=== PATIENT | male | born 1990 | race Caucasian/White ===

== ENCOUNTER 2019-06-06 11:33 | Emergency (ER) | payer OTHER ==
[2019-06-06 11:48] VITALS: BP 107/68; PULSE 75; TEMP 98.4; BMI 27.7
[2019-06-06] MEDS ORDERED: IBUPROFEN 400 MG TABLET (FP) PO ONE ×2 (12:16→12:24)
--- NOTE | 2019-06-06 12:20 | PDOC ---
History of Present Illness - General Chief Complaint: Pain, Acute Stated Complaint: RT GROAIN INJURY Time Seen by Provider: 06/06/19 12:00 History Source: Patient - History of Present Illness Occurred: reports: this morning Lower Extremity Pain Location: right: other (thigh) Method of Injury: Yes: twisted Past History - Past Medical History Allergies/Adverse Reactions: Allergies Allergy/AdvReac Type Severity Reaction Status Date / Time No Known Allergies Allergy Verified 08/05/15 10:26 Home Medications: Ambulatory Orders Cyclobenzaprine HCl [Flexeril -] 5 mg PO TID PRN #21 tablet 03/29/16 Naproxen [Naprosyn -] 500 mg PO BID #14 tablet 03/29/16 Cyclobenzaprine HCl [Flexeril 10 mg] 10 mg PO HS #9 tablet 06/06/19 Ibuprofen [Motrin -] 800 mg PO Q6H #30 tablet 06/06/19 COPD: No Other medical history: pulled groin - Immunization History Immunization Up to Date: Yes - Psycho Social/Smoking Cessation Hx Smoking History: Never smoked Have you smoked in the past 12 months: No Hx Alcohol Use: Yes Drug/Substance Use Hx: No Substance Use Type: None Review of Systems - Review of Systems Musculoskeletal: No: Back Pain, Joint Pain, Joint Swelling, Muscle Weakness Neurological: No: Numbness, Tingling *Physical Exam - Vital Signs Last Vital Signs Temp Pulse Resp BP Pulse Ox 98.4 F 75 16 107/68 96 06/06/19 11:45 06/06/19 11:45 06/06/19 11:45 06/06/19 11:45 06/06/19 11:45 - Physical Exam General Appearance: Yes: Appropriately Dressed. No: Apparent Distress HEENT: positive: Normal Voice Neck: positive: Supple Respiratory/Chest: negative: Respiratory Distress Male Genitalia: positive: normal genitalia. negative: testicular tenderness, testicular mass, hernia Extremity: positive: Normal Inspection, Normal Range of Motion. 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 Only has pain when turning thigh outward. Is able to bear weightwhen weight bearing. Denies any testicular pain or swelling see exam M/l MSK thigh pain. i.e strain vs spasm No e/o serious injury at this time, pain locater to site of adductor muscle -Dc w/ pain control -PMD f/u as needed Discharge - Discharge Information Problems reviewed: Yes Clinical Impression/Diagnosis: Muscle strain of thigh Qualifiers: Encounter type: initial encounter Laterality: right Qualified Code(s): S76.911A - Strain of unspecified muscles, fascia and tendons at thigh level, right thigh, initial encounter Condition: Good Disposition: HOME - Additional Discharge Information Prescriptions: Cyclobenzaprine HCl [Flexeril 10 mg] 10 mg PO HS #9 tablet Ibuprofen [Motrin -] 800 mg PO Q6H #30 tablet - Follow up/Referral - Patient Discharge Instructions Additional Instructions: You have possibly strained your thigh muscle Take medications as directed If symptoms persist, please follow-up with your PMD - Post Discharge Activity Work/Back to School Note: Back to Work
== END 2019-06-06 12:28 | disposition home or self-care (01) ==
LOC: JERFT 11:33
DX: S76.911A Strain of unspecified muscles, fascia and tendons at thigh level, right thigh, initial encounter (principal)
CPT/HCPCS: 99283-25

== ENCOUNTER 2023-03-29 10:35 | Emergency (ER) | payer OTHER ==
[2023-03-29 10:48] VITALS: BP 111/61; PULSE 72; RESP 17; TEMP 97.6; BMI 27.6
[2023-03-29] MEDS ORDERED: IBUPROFEN 600 MG TABLET (FP) PO ONE ×2 (11:32→11:33)
== END 2023-03-29 13:14 | disposition home or self-care (01) ==
LOC: JERFT 10:35
DX: M25.571 Pain in right ankle and joints of right foot (principal); M76.61 Achilles tendinitis, right leg
CPT/HCPCS: 99283-25